=== PATIENT | male | born 1990 | race Caucasian/White ===

== ENCOUNTER 2017-11-13 08:37 | Emergency (ER) | payer OTHER ==
[~2017-11-13] VITALS: Ht 180.3 cm; Wt 63.0 kg
== END 2017-11-13 11:23 | disposition home or self-care (01) ==
LOC: ER 08:37
DX: M54.5 Low back pain (principal)

== ENCOUNTER → 2017-12-05 | Emergency (ER) | payer OTHER ==
[~2017-12-05] VITALS: Ht 180.3 cm; Wt 63.0 kg
== END | disposition home or self-care (01) ==
LOC: ER 14:44
DX: R21 Rash and other nonspecific skin eruption (principal); T78.49XA Other allergy, initial encounter